=== PATIENT | male | born 1975 | race Caucasian/White ===

== ENCOUNTER 2016-07-18 19:31 | Observation (INO) | payer SELFPAY ==
[2016-07-18 19:47] VITALS: BMI 26.9
[2016-07-18 20:00] LABS: AUTOMATED BASOPHIL 0.9 % (0-2); AUTOMATED EOSINOPHIL 0.4 % (0-5); AUTOMATED LYMPH 19.7 % (17-44); AUTOMATED MONOCYTE 8.6 % (3-10); AUTOMATED NEUTROPHIL 70.4 % (45-76); MPV 8.3 fL (7.4-10.4)
[2016-07-18 20:14] LABS: BLOOD UREA NITROGEN 25 MG/DL (9-20); CALCIUM 9.5 MG/DL (8.4-10.2); CALCULATED OSMOLALITY 279 MOs/Kg (270-290); CHLORIDE 102 mEq/L (98-107); ETOH-MGDL < 10 mg/dL; GLUCOSE 127 MG/DL (70-99); SODIUM LEVEL 142 mEq/L (137-146); TOTAL PROTEIN 7.7 G/DL (6.3-8.2)
--- NOTE | 2016-07-18 21:00 | EDPRACDOC ---
- General Information Chief Complaint: Psychiatric Illness Stated Complaint: SI Time Seen by Provider: 07/18/16 20:13 Mode of Arrival: Walk Home Medications: Home Medications Dapagliflozin Propanediol [Farxiga] 10 mg PO DAILY 07/18/16 Gabapentin 600 mg PO TID 07/18/16 Glipizide 10 mg PO BID 07/18/16 Insulin Detemir [Levemir] 20 units SQ DAILY 07/18/16 Lovastatin 40 mg PO QHS 07/18/16 Saxagliptin HCl [Onglyza] 5 mg PO DAILY 07/18/16 Allergies/Adverse Reactions: Allergies Allergy/AdvReac Type Severity Reaction Status Date / Time haloperidol Allergy Unknown Verified 07/18/16 19:43 haloperidol lactate Allergy Unknown Verified 07/18/16 19:43 [From Haldol] - History of Present Illness Onset: 6 months HPI: PATIENT STATES HE HAS BEEN ADDICTED TO [facility]" AND WANTS TO QUIT. HE HAS FELT VERY BAD ABOUT HIMSELF AND HAS HAD SUICIDAL THOUGHTS. Reason for Seeking Treatment: Self-referral Presents With: Reports: Suicidal Ideation Expresses: Reports: Suicidal Plan Suicidal Plan: Reports: Overdose Stressors: Reports: Relationships Medication Compliance: No Tetanus Up To Date?: Yes Able to Care for Self: Yes Able to Control Self: No ED Past Medical History - History Reviewed Yes Nurses notes reviewed and agree except as marked Travel Outside of [place] in the Last 3 Months?: No - Patient Medical History Psychological History: Reports: Depression, Anxiety, Schizophrenia Systemic History: Reports: Diabetes (NIDDM). Denies: Cancer - Social Medical History Smoking Status: Heavy tobacco smoker (5 or more cigarettes/day or daily pipe/ cigar) Substance Abuse: Illicit Drugs Lives With: Family Lives In: Home EDM Review of Systems - Review of Systems ROS Negative Except as Marked: Yes All systems reviewed and were negative except as marked Constitutional: No Symptoms Reported. negative: Fever, Chills, Weakness, Fatigue, Loss of Appetite Eyes: No Symptoms Reported. negative: Redness, Blurred Vision, Double Vision, Discharge, Pain, Light Sensitive, Photophobia Ears: No Symptoms Reported. negative: Pain, Hearing Loss, Drainage, Ear Pulling Throat: No Symptoms Reported. negative: Pain, Swelling Nose: No Symptoms Reported. negative: Congestion, Bleeding, Discharge, Injection, Swelling, Deformity, Ecchymosis, Tender, Abrasion, Laceration Mouth: No Symptoms Reported. negative: Pain, Drooling Respiratory: No Symptoms Reported. negative: Cough, Brassy Cough, Barky Cough, Shortness of Breath, Wheezing, Hemoptysis Cardiovascular: No Symptoms Reported. negative: Chest Pain, Palpitations, Syncope, Edema, Orthopnea, PND, Skin Mottling, Cyanosis Gastrointestinal: No Symptoms Reported. negative: Pain, Constipation, Nausea, Vomiting, Diarrhea, Melena, Formula Intolerance Genitourinary: No Symptoms Reported. negative: Dysuria, Hematuria, Frequency, Discharge, Bleeding, Testicular Pain, Neurological: No Symptoms Reported. negative: Headache, Dizziness, Seizure, Numbness, Weakness, Speech Difficulty, Gait Difficulty Musculoskeletal: No Symptoms Reported. negative: Neck, Chestwall, Ribs, Back, Shoulder, Arm, Elbow, Forearm, Wrist, Hand, Pelvis, Hip, Femur, Knee, Leg, Ankle , Foot Integumentary: No Symptoms Reported. negative: Itching, Rash, Bruising, Wound Allergic/Immunologic: No Symptoms Reported. negative: Hives, Itching Hematologic: No Symptoms Reported. negative: Lymphadenopathy, Easy Bruising, Easy Bleeding Endocrine: No Symptoms Reported. negative: Weight Gain, Weight Loss Psychiatric: Suicidal. negative: Anxiety, Depression, Hallucinations, Insomnia - Physical Exam Constitutional: Alert (Awake) Oriented to: Time, Person, Place Last recorded Vital Signs: Last Vital Signs Temp 98.4 F 07/18/16 19:43 Pulse 105 07/18/16 19:43 Resp 18 07/18/16 19:43 BP 166/76 07/18/16 19:43 Pulse Ox 99 07/18/16 19:43 Oxygen Pulse Oxygen Saturation 99 O2 Device Oxygen Flow Rate Fraction of Inspired Oxygen ( FIO2) - HEENT Head: Normal ( normocephalic) Eye Exam: Normal (PERRL, EOMI, Sclera white) Oropharynx: Normal (Pharynx:Moist without exudate,Gums-no swelling) Tympanic Membrane: Normal ENT EAC: Normal TMJ: Normal Nose: No Symptoms Reported (septum midline) Neck: Normal (FROM, trachea at midline) - Respiratory/Cardiovascular Respiratory: Normal - CTA (BBS clear to auscultation without adventitious sounds ) Cardiovascular: Normal (RRR without murmur, gallop or rub) - GI Auscultation: Normal (NABS) Palpation: Normal (Soft,No rebound or guarding, non distended) Tenderness: Non tender Rouse's Sign: Negative - Musculoskeletal Back: Normal (Non-Tender) Extremities: Normal (Normal tone, Pulses 2+ No cyanosis or edema, FROM) - Integumentary Skin: Normal, Warm, Dry Lymphatics: Normal (no adenopathy) - Neurologic Memory Impaired: Normal Motor Function: Normal (Normal tone, Pulses 2+ No cyanosis or edema, FROM) Cranial Nerve: Normal (CN II-X11 intact sensation, strength 5/5) Cerebellar: Normal Mood Description: Depressed Thought: Coherent Perception: Normal - Results 07/18/16 19:50 07/18/16 19:50 WBC 9.9 xk/uL (3.8-10.8) 07/18/16 19:50 RBC 4.54 xM/uL (4.70-6.10) L 07/18/16 19:50 Hgb 14.0 g/dL (14.0-18.0) 07/18/16 19:50 Hct 40.8 % (42-52) L 07/18/16 19:50 MCV 90 fL (80-94) 07/18/16 19:50 MCH 30.7 pg (27-32) 07/18/16 19:50 MCHC 34.2 g/dl (33-36) 07/18/16 19:50 RDW 12.9 % (11.5-14.5) 07/18/16 19:50 Plt Count 321 xk/uL (130-400) 07/18/16 19:50 MPV 8.3 fL (7.4-10.4) 07/18/16 19:50 Neut % (Auto) 70.4 % (45-76) 07/18/16 19:50 Lymph % (Auto) 19.7 % (17-44) 07/18/16 19:50 [place] % (Auto) 8.6 % (3-10) 07/18/16 19:50 Eos % (Auto) 0.4 % (0-5) 07/18/16 19:50 Baso % (Auto) 0.9 % (0-2) 07/18/16 19:50 Absolute Neuts (auto) 6.93 xk/uL (1.7-8.2) 07/18/16 19:50 Absolute Lymphs (auto) 1.88 xk/uL (0.65-4.75) 07/18/16 19:50 Sodium 142 mEq/L (137-146) 07/18/16 19:50 Potassium 5.2 mEq/L (3.5-5.1) H 07/18/16 19:50 Chloride 102 mEq/L (98-107) 07/18/16 19:50 Carbon Dioxide 29 mMOL/L (22-33) 07/18/16 19:50 Anion Gap 16 mEq/L (8-16) 07/18/16 19:50 BUN 25 MG/DL (9-20) H 07/18/16 19:50 Creatinine 1.10 MG/DL (0.66-1.25) 07/18/16 19:50 Estimated GFR (MDRD) > 60 mL/min (>=60) 07/18/16 19:50 Glucose 127 MG/DL (70-99) H 07/18/16 19:50 Calculated Osmolality 279 MOs/Kg (270-290) 07/18/16 19:50 Calcium 9.5 MG/DL (8.4-10.2) 07/18/16 19:50 Total Bilirubin 0.6 MG/DL (0.2-1.3) 07/18/16 19:50 AST 27 IU/L (17-59) 07/18/16 19:50 ALT 41 IU/L (21-72) 07/18/16 19:50 Alkaline Phosphatase 60 IU/L (38-126) 07/18/16 19:50 Total Protein 7.7 G/DL (6.3-8.2) 07/18/16 19:50 Albumin 4.3 G/DL (3.5-5.0) 07/18/16 19:50 Plasma/Serum Ethyl Alc % (<0.01) 07/18/16 19:50 Lab Results 07/18/16 07/18/16 19:50 19:50 WBC 9.9 RBC 4.54 L Hgb 14.0 Hct 40.8 L MCV 90 MCH 30.7 MCHC 34.2 RDW 12.9 Plt Count 321 MPV 8.3 Neut % (Auto) 70.4 Lymph % (Auto) 19.7 [place] % (Auto) 8.6 Eos % (Auto) 0.4 Baso % (Auto) 0.9 Absolute Neuts (auto) 6.93 Absolute Lymphs (auto) 1.88 Sodium 142 Potassium 5.2 H Chloride 102 Carbon Dioxide 29 Anion Gap 16 BUN 25 H Creatinine 1.10 Estimated GFR (MDRD) > 60 Glucose 127 H Calculated Osmolality 279 Calcium 9.5 Total Bilirubin 0.6 AST 27 ALT 41 Alkaline Phosphatase 60 Total Protein 7.7 Albumin 4.3 Plasma/Serum Ethyl Alc - Departure Yes I personally saw and evaluated the patient. Condition: Stable Final Diagnosis: Suicidal ideations Education/Counseling Given To: Patient Education/Counseling Given Regarding: Diagnosis, Treatment, Prognosis Referrals: None,No Provider [Primary Care Provider] - One Week Prescriptions: No Action Insulin Detemir [Levemir] 20 units SQ DAILY Glipizide 10 mg PO BID Gabapentin 600 mg PO TID Saxagliptin HCl [Onglyza] 5 mg PO DAILY Lovastatin 40 mg PO QHS Dapagliflozin Propanediol [Farxiga] 10 mg PO DAILY
[2016-07-18] MEDS ORDERED: Docusate Sodium 100 MG CAP PO PRN (21:01)
[2016-07-18] MEDS ORDERED: ACETAMINOPHEN 325 MG/TAB TABLET PO PRN (21:01)
[2016-07-18] MEDS ORDERED: GUAIFENESIN 200 MG/10 ML UDC PO PRN (21:01)
[2016-07-18] MEDS ORDERED: TEMAZEPAM 15 MG CAP PO PRN (21:01)
[2016-07-18] MEDS ORDERED: ONDANSETRON HCL 4 MG ODT TAB PO PRN (21:01)
[2016-07-18] MEDS ORDERED: IBUPROFEN 400 MG TAB PO PRN (21:01)
[2016-07-18] MEDS ORDERED: MAGNESIUM HYDROXIDE 30 ML BOTTLE PO PRN (21:01)
[2016-07-18] MEDS ORDERED: LORAZEPAM 1 MG TAB PO PRN (21:01)
[2016-07-18 21:25] LABS: ALL NEG? NO
[2016-07-18 21:33] LABS: LEUKOCYTES/URINE NEG (NEGATIVE); MDMA* NEG (NEGATIVE); METHAMPHETAMINES NEG (NEGATIVE); NITRITE/URINE NEG (NEGATIVE); OXYCODONE NEG (NEGATIVE); URINE OCCULT BLOOD 1+ (NEG/TRACE); WBC/URINE 0-2 (0-2)
[2016-07-18] MEDS ORDERED: INSULIN DETEMIR 100 UNITS/ML PEN SQ SCH (22:00)
[2016-07-19] MEDS ORDERED: GABAPENTIN 300 MG CAP PO SCH (06:00)
[2016-07-19] MEDS ORDERED: Non-Formulary Medication ITEM (Gabapentin [Gabapentin] 600 MG) PO SCH (06:00)
[2016-07-19] MEDS ORDERED: SITAGLIPTIN 50 MG TAB PO SCH (07:00)
[2016-07-19] MEDS ORDERED: GLIPIZIDE 10 MG TAB PO SCH (07:00)
--- NOTE | 2016-07-19 08:15 | EDTUNOTE ---
- SOAP Note Patient Problems: Active Problems Suicidal ideations (Acute) R45.851 SOAP Note: S: pt sleeping O: VS nml A: Suicidal ideations (Acute) R45.851 P: will cont to monitor pending further evaluation and disposition
[2016-07-19] MEDS ORDERED: DAPAGLIFLOZIN PROPANEDIOL 5 MG PO SCH (09:00)
[2016-07-19] MEDS ORDERED: SAXAGLIPTIN HCL 5 MG PO SCH (09:00)
[2016-07-19] MEDS ORDERED: INSULIN DETEMIR 100 UNITS/ML PEN SQ SCH (09:00)
[2016-07-19 14:33] VITALS: BP 122/78; PULSE 107; TEMP 97.7
[2016-07-19] MEDS ORDERED: LOVASTATIN 40 MG PO SCH (21:00)
[2016-07-19] MEDS ORDERED: PRAVASTATIN 40 MG TABLET PO SCH (21:00)
== END 2016-07-19 14:10 ==
LOC: ED 19:31 → EDINP 21:01 → TUOBSINP 07-19 09:45
PROVIDERS: ADMIT Emergency Medicine; ATTEND Emergency Medicine
DX: R45.851 Suicidal ideations (principal); F17.210 Nicotine dependence, cigarettes, uncomplicated; E11.9 Type 2 diabetes mellitus without complications; Z79.899 Other long term (current) drug therapy
CPT/HCPCS: 36415; 80053; 80307; 81001; 82962; 85025; 86592; 93005; 99284; G0378; J3490

== ENCOUNTER 2016-07-27 14:35 | Emergency (ER) | payer SELFPAY ==
[2016-07-27 14:45] VITALS: TEMP 98; BMI 26.7
--- NOTE | 2016-07-27 15:26 | EDPRACDOC ---
- General Information Chief Complaint: Generalized Weakness Stated Complaint: ? ELEVATED BS Time Seen by Provider: 07/27/16 15:13 Information Source: Patient Mode of Arrival: Car Home Medications: Home Medications Fluoxetine HCl 20 mg PO DAILY #30 capsule 07/27/16 Gabapentin 600 mg PO TID #90 tablet 07/27/16 Glipizide 10 mg PO BID #60 tablet 07/27/16 Insulin Detemir [Levemir] 20 units SQ DAILY #1 pen 07/27/16 Lovastatin 40 mg PO QHS #30 tablet 07/27/16 Saxagliptin HCl [Onglyza] 5 mg PO DAILY #3 tablet 07/27/16 Allergies/Adverse Reactions: Allergies Allergy/AdvReac Type Severity Reaction Status Date / Time haloperidol Allergy Unknown Verified 07/27/16 14:41 haloperidol lactate Allergy Unknown Verified 07/27/16 14:41 [From Haldol] - 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 THE PATIENT HAS BEEN WITHOUT ANY OF HIS MEDICATIONS FOR THE PAST 3 DAYS. THESE MEDICATIONS ARE CURRENTLY AT THE HOMELESS ALF WHICH THE PATIENT WAS KICKED OUT OFF SEVERAL DAYS AGO. CURRENTLY THE PATIENT FEELS SOMEWHAT LIGHTHEADED, AND FEELS LIKE HIS SUGARS ARE RUNNING HIGH. THE PERSONAL BANKING OFFICER IS CONCERNED THAT HE CAN SMELL KETONES ON HIS BREATH. PATIENT BROUGHT TO THE EMERGENCY DEPARTMENT FOR CONCERN OF DIABETIC COMPLICATION. IT IS ALSO UNSURE WHEN HIS MEDICATIONS WILL BE COLLECTED FROM THE HOMELESS ALF. THE PATIENT [facility] LIVING AT THE [facility] AT THE PERSONAL BANKING OFFICER 'S CHART. ED Past Medical History - Patient Medical History Psychological History: Reports: Depression, Anxiety, Schizophrenia Systemic History: Reports: Diabetes (NIDDM). Denies: Cancer, Anemia, Hyperthyroidism, Hypothyroidism - Family Medical History Reports: Hypertension, Diabetes, Cancer, Cardiac Disorders. Denies: Stroke - Social Medical History Smoking Status: Heavy tobacco smoker (5 or more cigarettes/day or daily pipe/ cigar) Lives In: Homeless EDM Review of Systems - Review of Systems ROS Negative Except as Marked: Yes All systems reviewed and were negative except as marked - Physical Exam Constitutional: No apparent distress, Alert, Other (NO ODOR OF ACETONE) Oriented to: Time, Person, Place Last recorded Vital Signs: Last Vital Signs Temp 98.0 F 07/27/16 14:41 Pulse 111 07/27/16 14:41 Resp 20 07/27/16 14:41 BP 149/85 07/27/16 14:41 Pulse Ox 99 07/27/16 14:41 Oxygen Pulse Oxygen Saturation 99 O2 Device Room Air Oxygen Flow Rate Fraction of Inspired Oxygen ( FIO2) - HEENT Head: Normal Eye Exam: Normal. negative: Edema, Pale Conjunctiva, Scleral Icterus Oropharynx: negative: Membranes Dry - Respiratory/Cardiovascular Respiratory: Normal - CTA Cardiovascular: Normal. negative: Tachycardia - GI Auscultation: Normal, Absent Tenderness: Non tender - Integumentary Skin: Normal - Neurologic Memory Impaired: Normal Mood Description: Normal - Results 07/27/16 15:40 - Additional Information PT HAS DRANK SEVERAL CUPS OF WATER, ABLE TO MAINTAIN HYDRATION STATUS. PT STARTED BACK ON ROUTINE MEDS, PROVIDED DURING ED EVAL AND 3 MONTH RX PROVIDED WELL. PT WILL BE ABLE TO GET MEDS FOR HOMELESS ALF. - Departure Disposition: Home Condition: Stable Final Diagnosis: Hyperglycemia, Dehydration Instructions: Weakness (ED), Diabetic Hyperglycemia (ED), Managing Diabetes During Sick Days (ED) Education/Counseling Given To: Patient, Friend Education/Counseling Given Regarding: Diagnosis, Treatment, Prognosis Referrals: None,No Provider [Primary Care Provider] - One Week Prescriptions: Continue Lovastatin 40 mg PO QHS #30 tablet Fluoxetine HCl 20 mg PO DAILY #30 capsule Gabapentin 600 mg PO TID #90 tablet Glipizide 10 mg PO BID #60 tablet Insulin Detemir [Levemir] 20 units SQ DAILY #1 pen Saxagliptin HCl [Onglyza] 5 mg PO DAILY #3 tablet
[2016-07-27] MEDS ORDERED: SAXAGLIPTIN HCL 5 MG PO SCH (15:30)
[2016-07-27] MEDS ORDERED: Non-Formulary Medication ITEM (Gabapentin [Gabapentin] 600 MG) PO SCH (15:30)
[2016-07-27] MEDS ORDERED: INSULIN DETEMIR 100 UNITS/ML PEN SQ SCH ×2 (16:00)
[2016-07-27] MEDS ORDERED: INSULIN DETEMIR 100 UNITS/ML PEN SQ ONE (16:00)
[2016-07-27] MEDS ORDERED: SITAGLIPTIN 50 MG TAB PO SCH (16:00)
[2016-07-27 16:02] LABS: BLOOD UREA NITROGEN 26 MG/DL (9-20); CALCIUM 9.5 MG/DL (8.4-10.2); CALCULATED OSMOLALITY 280 MOs/Kg (270-290); CHLORIDE 98 mEq/L (98-107); GLUCOSE 297 mg/dL (70-99); SODIUM LEVEL 137 mEq/L (137-146)
[2016-07-27 16:26] VITALS: BP 125/84; PULSE 105
[2016-07-27] MEDS ORDERED: GLIPIZIDE 10 MG TAB PO SCH (21:00)
[2016-07-27] MEDS ORDERED: GABAPENTIN 300 MG CAP PO SCH (21:00)
== END 2016-07-27 16:45 | disposition home or self-care (01) ==
LOC: ED 14:35
DX: E11.65 Type 2 diabetes mellitus with hyperglycemia (principal); E86.0 Dehydration
CPT/HCPCS: 36415; 80048; 82962; 96372; 99283; J3490